=== PATIENT | female | born 1985 | race Two or more races ===

== ENCOUNTER 2018-10-20 08:59 | Inpatient (IN) | payer BC ==
[~2018-10-20] VITALS: Ht 167.6 cm; Wt 90.7 kg
[2018-10-20] MEDS ORDERED: SODIUM CHLORIDE 0.9% 1,000 ML IV ONE (09:32)
[2018-10-20 09:42] LABS: BASOPHILS % 0.5 % (0.0-2.0); EOSINOPHILS % 0.2 % (0.0-5.0); HEMATOCRIT. 41.4 % (36.0-48.0); HEMOGLOBIN. 14.3 g/dL (12.0-16.0); LYMPHOCYTES % 7.8 % (20.0-50.0); MEAN CORPUSCULAR HEMOGLOBIN 31.8 pg (28.0-32.0); MEAN CORPUSCULAR VOLUME 92.4 fL (81.0-99.0); MEAN PLATELET VOLUME 8.5 fl (7.4-10.4); MONOCYTES % 6.4 % (2.0-8.0); NEUTROPHILS % 85.1 % (40.0-76.0); PLATELET 165 x1000/uL (130-400); RED BLOOD CELL COUNT 4.48 mill/uL (4.2-5.4); RED CELL DISTRIBUTION WIDTH 13.7 % (11.6-14.6)
[2018-10-20] MEDS ORDERED: LEVETIRACETAM 1000MG/100ML 100 ML IV SCH (09:45)
[2018-10-20] MEDS ORDERED: LEVETIRACETAM 1000MG/100ML 100 ML IV ONE (09:45)
[2018-10-20 09:50] LABS: PROTHROMBIN TIME 10.3 sec (9.6-11.0)
[2018-10-20 09:54] LABS: CHLORIDE 110 mEq/L (98-107)
[2018-10-20 09:58] LABS: ETHANOL BLOOD < 10 mg/dL
[2018-10-20 10:01] LABS: HCG SCREEN NEGATIVE
[2018-10-20 10:02] LABS: CREATINE KINASE 261 IU/L (26-192)
[2018-10-20] MEDS ORDERED: IPRATROPIUM/ALBUTEROL 0.5-3(2.5)MG/3ML NEB INH PRN (13:00)
[2018-10-20] MEDS ORDERED: CLONIDINE 0.1MG TABLET PO PRN (13:00)
[2018-10-20] MEDS ORDERED: MAGNESIUM/ALUMINUM HYDROXIDE/SIMETHICONE 30ML UDC PO PRN (13:00)
[2018-10-20] MEDS ORDERED: ONDANSETRON HCL 4MG/2ML INJ IV PRN (13:00)
[2018-10-20] MEDS ORDERED: ACETAMINOPHEN 325MG TABLET PO PRN (13:00)
[2018-10-20] MEDS ORDERED: ENOXAPARIN 40MG/0.4ML SYR SUBCUT SCH (13:00)
[2018-10-20 13:31] LABS: CLARITY URINE CLEAR (CLEAR); COLOR URINE YELLOW (YELLOW); KETONES URINE NEGATIVE (NEGATIVE); LEUKOCYTE ESTERASE URINE NEGATIVE (NEGATIVE); NITRITE URINE NEGATIVE (NEGATIVE); OCCULT BLOOD URINE TRACE (NEGATIVE); PROTEIN URINE 1+ (NEGATIVE); SPECIFIC GRAVITY URINE 1.022 (1.005-1.030); UROBILINOGEN URINE 0.2 E.U./dL (0.2-1.0)
[2018-10-20 14:06] LABS: *AMPHETAMINES SCREEN URINE NEGATIVE (NEGATIVE); *BARBITURATES SCREEN URINE NEGATIVE (NEGATIVE); *BENZODIAZEPINES SCREEN URINE NEGATIVE (NEGATIVE); *COCAINE SCREEN URINE NEGATIVE (NEGATIVE); METHADONE URINE SCREEN NEGATIVE (NEGATIVE); OPIATES URINE SCREEN NEGATIVE (NEGATIVE)
[2018-10-20 14:07] LABS: CANNABINOID URINE SCREEN NEGATIVE (NEGATIVE); PHENCYCLIDINE URINE SCREEN NEGATIVE (NEGATIVE)
[2018-10-20 14:30] VITALS: BP 103/61
[2018-10-20] MEDS ORDERED: DEXTROSE 50% WATER 50ML SYRINGE IV PRN (15:30)
[2018-10-20] MEDS ORDERED: HYDROMORPHONE HCL/PF 2MG/ML CPJ IV SCH (15:37)
[2018-10-20 16:00] VITALS: BP 103/61
[2018-10-20] MEDS: INSULIN LISPRO 100 UNITS/ML SUBCUT SCH ×2 (17:15→21:00)
[2018-10-20] MEDS: BLOOD SUGAR DIAGNOSTIC STRIP TEST SCH ×2 (17:33→21:53)
[2018-10-20 20:00] VITALS: BP 128/74
[2018-10-20] MEDS ORDERED: LORA1TAB PO (21:49)
[2018-10-20] MEDS ORDERED: METF500T7 MT (21:49)
[2018-10-20] MEDS ORDERED: SIMV20TA6 PO (21:49)
[2018-10-20] MEDS ORDERED: CLON2TAB11 PO (21:49)
[2018-10-20] MEDS ORDERED: EMPA25TA PO (21:49)
[2018-10-20] MEDS: ENOXAPARIN 30MG/0.3ML SYR SUBCUT SCH (21:53)
[2018-10-20] MEDS: LEVETIRACETAM 500MG TABLET PO SCH (21:53)
[2018-10-20] MEDS ORDERED: VISCOUS LIDOCAINE 2% 15 ML UDC PO PRN (22:15)
[2018-10-20] MEDS ORDERED: LIDOCAINE HCL 20 MG/ML 100ML BOTTLE PO PRN (22:15)
[2018-10-20] MEDS: LORAZEPAM 2MG/ML CPJ IV PRN (23:36)
[2018-10-21] VITALS: BP 105/55
[2018-10-21 04:00] VITALS: BP 102/51
[2018-10-21] MEDS: BLOOD SUGAR DIAGNOSTIC STRIP TEST SCH ×2 (06:54→12:31)
[2018-10-21] MEDS: INSULIN LISPRO 100 UNITS/ML SUBCUT SCH ×2 (06:54→12:15)
[2018-10-21 06:56] LABS: BASOPHILS % 0.8 % (0.0-2.0); EOSINOPHILS % 1.8 % (0.0-5.0); HEMATOCRIT. 36.2 % (36.0-48.0); HEMOGLOBIN. 12.4 g/dL (12.0-16.0); MEAN CORPUSCULAR HEMOGLOBIN 31.8 pg (28.0-32.0); MEAN CORPUSCULAR VOLUME 92.7 fL (81.0-99.0); MEAN PLATELET VOLUME 8.5 fl (7.4-10.4); MONOCYTES % 8.9 % (2.0-8.0); NEUTROPHILS % 55.5 % (40.0-76.0); PLATELET 152 x1000/uL (130-400); RED BLOOD CELL COUNT 3.91 mill/uL (4.2-5.4); RED CELL DISTRIBUTION WIDTH 13.7 % (11.6-14.6)
[2018-10-21 07:25] LABS: CHLORIDE 110 mEq/L (98-107)
[2018-10-21 08:00] VITALS: BP 117/74
[2018-10-21] MEDS ORDERED: DOCUSATE SODIUM 100MG CAPSULE PO SCH (09:00)
[2018-10-21] MEDS ORDERED: POTASSIUM CHLORIDE 20MEQ/PACKET PO SCH (09:15)
[2018-10-21] MEDS: LEVETIRACETAM 500MG TABLET PO SCH (09:24)
[2018-10-21] MEDS: ENOXAPARIN 30MG/0.3ML SYR SUBCUT SCH (09:24)
[2018-10-21] MEDS ORDERED: MAGNESIUM 2 G PREMIX 50 ML IV PRN (11:15)
[2018-10-21] MEDS: LORAZEPAM 2MG/ML CPJ IV PRN (11:27)
[2018-10-21] MEDS ORDERED: POTASSIUM CHLORIDE INJ 40 MEQ in DEXT 5% WATER 500 ML IV NR (13:00)
[2018-10-21 15:43] VITALS: BP 126/78
== END 2018-10-21 16:40 | disposition home or self-care (01) | DRG 101 ==
LOC: ER 08:59 → 5WST 11:17 → EDBEDREQSVC 11:21 → EDBEDREQTM 11:21 → EDBEDREQ 11:21 → ENRESERV 12:43
PROVIDERS: ADMIT Internal Medicine Geriatric Medicine; ATTEND Internal Medicine Geriatric Medicine
DX: G40.911 Epilepsy, unspecified, intractable, with status epilepticus (principal); E11.9 Type 2 diabetes mellitus without complications; E78.00 Pure hypercholesterolemia, unspecified; E78.5 Hyperlipidemia, unspecified; E87.6 Hypokalemia; F43.10 Post-traumatic stress disorder, unspecified; F51.04 Psychophysiologic insomnia; X58.XXXA Exposure to other specified factors, initial encounter; M19.90 Unspecified osteoarthritis, unspecified site; S00.532A Contusion of oral cavity, initial encounter; R63.5 Abnormal weight gain; Z68.33 Body mass index [BMI] 33.0-33.9, adult; Y93.89 Activity, other specified; Y92.89 Other specified places as the place of occurrence of the external cause; Y99.8 Other external cause status
CPT/HCPCS: 36415; 70486; 70551; 71045; 80305; 80320; 82550; 82962; 83036; 83735; 84443; 84703; 92610; 93005; 93970; 96365; 96375; 99291; J1170; J1650; J1953; J2060; J2405; J3480; J7030; J7060; G0480